=== PATIENT | female | born 1945 | race American Indian/Alaskan Native ===

== ENCOUNTER 2018-05-13 12:19 | Outpatient (CLI) | payer BC ==
[2018-05-13 12:59] LABS: Hematocrit 37.3 % (30.3-42.9); Hemoglobin 12.6 gm/dl (10.1-14.3); Red Blood Count 4.54 M/mm3 (3.65-5.03)
[2018-05-13 13:00] LABS: Basophils # (Auto) 0.1 K/mm3 (0.0-0.1); Basophils % (Auto) 1.2 % (0.0-1.8); Eosinophils % (Auto) 0.7 % (0.0-4.3); Lymphocytes # (Auto) 1.6 K/mm3 (1.2-5.4); Lymphocytes % (Auto) 24.4 % (13.4-35.0); Mean Corpuscular HGB Conc 34 % (30-34); Mean Corpuscular Hemoglobin 28 pg (28-32); Mean Corpuscular Volume 82 fl (79-97); Monocytes # (Auto) 0.4 K/mm3 (0.0-0.8); Monocytes % (Auto) 6.6 % (0.0-7.3); Platelet Count 349 K/mm3 (140-440); Red Cell Distribution Width 16.5 % (13.2-15.2)
[2018-05-13 13:14] LABS: Alanine Aminotransferase 20 units/L (7-56); BUN/Creatinine Ratio 21; Blood Urea Nitrogen 17 mg/dL (7-17); Calcium 9.9 mg/dL (8.4-10.2); Chol/HDL Ratio 5.21 %; HDL Cholesterol 46 mg/dL (40-59); Hemolysis Index 39; LDL Cholesterol,Direct 190 mg/dL (50-130)
[2018-05-15 14:09] LABS: Creatinine,Urine 143.5 mg/dL (0.1-20.0); Microalbumin/Creatinine Ratio 207.6 ug/mg
== END 2018-05-13 12:20 | disposition home or self-care (01) ==
LOC: LAB 12:19
DX: E11.65 Type 2 diabetes mellitus with hyperglycemia (principal); I10 Essential (primary) hypertension; E78.5 Hyperlipidemia, unspecified; I63.9 Cerebral infarction, unspecified; Z90.710 Acquired absence of both cervix and uterus
CPT/HCPCS: 36415; 80053; 80061; 82043; 83036; 85025

== ENCOUNTER 2019-03-26 11:47 | Outpatient (CLI) | payer BC ==
[2019-03-26 13:07] LABS: Hematocrit 35.6 % (30.3-42.9); Hemoglobin 11.8 gm/dl (10.1-14.3); Mean Corpuscular HGB Conc 33 % (30-34); Mean Corpuscular Volume 80 fl (79-97); Platelet Count 306 K/mm3 (140-440); Red Blood Count 4.44 M/mm3 (3.65-5.03); Red Cell Distribution Width 16.3 % (13.2-15.2)
[2019-03-26 13:10] LABS: Bilirubin,Urine NEG (Negative); Blood,Urine NEG (Negative); Color,Urine Yellow (Yellow); Mucus,Urine FEW /HPF; Urobilinogen,Urine < 2.0 mg/dL (<2.0)
[2019-03-26 13:18] LABS: Creatinine,Urine 133.5 mg/dL (0.1-20.0)
[2019-03-26 13:23] LABS: Alanine Aminotransferase 21 units/L (7-56); Albumin 3.9 g/dL (3.9-5); BUN/Creatinine Ratio 15; Blood Urea Nitrogen 12 mg/dL (7-17); Calcium 10.1 mg/dL (8.4-10.2); Hemolysis Index 1; LDL Cholesterol,Direct 170 mg/dL (50-130)
[2019-03-26 13:34] LABS: Chol/HDL Ratio 4.76 %; HDL Cholesterol 46 mg/dL (40-59)
[2019-03-26 13:56] LABS: Microalbumin/Creatinine Ratio 479.4 ug/mg
[2019-03-29 14:04] LABS: Vitamin D, 25-OH, D2 <4 ng/mL
== END 2019-03-26 11:48 | disposition home or self-care (01) ==
LOC: LAB 11:47
PROVIDERS: ATTEND Internal Medicine
DX: Z13.21 Encounter for screening for nutritional disorder (principal); E11.65 Type 2 diabetes mellitus with hyperglycemia; E78.5 Hyperlipidemia, unspecified; I10 Essential (primary) hypertension; Z90.710 Acquired absence of both cervix and uterus
CPT/HCPCS: 36415; 80053; 80061; 81001; 82043; 82306; 82607; 83036; 84443; 85027

== ENCOUNTER 2019-07-10 10:06 | Outpatient (CLI) | payer BC ==
[2019-07-10 11:48] LABS: Chol/HDL Ratio 5.52 %
[2019-07-15 10:06] LABS: Vitamin D, 25-OH, D2 <4 ng/mL
== END 2019-07-10 10:07 | disposition home or self-care (01) ==
LOC: LAB 10:06
PROVIDERS: ATTEND Internal Medicine
DX: E78.5 Hyperlipidemia, unspecified (principal); E55.9 Vitamin D deficiency, unspecified; E11.65 Type 2 diabetes mellitus with hyperglycemia
CPT/HCPCS: 36415; 80061; 82306; 83036

== ENCOUNTER 2019-08-18 11:04 | Outpatient (CLI) | payer BC ==
[2019-08-18 12:10] LABS: BUN/Creatinine Ratio 14; Blood Urea Nitrogen 10 mg/dL (7-17); Calcium 9.3 mg/dL (8.4-10.2); Hemolysis Index 11; LDL Cholesterol,Direct 172 mg/dL (50-130)
[2019-08-18 12:22] LABS: Chol/HDL Ratio 4.84 %; HDL Cholesterol 45 mg/dL (40-59)
--- NOTE | 2019-08-19 10:49 | Mammography Report ---
DIGITAL SCREENING MAMMOGRAM WITH CAD, 08/18/2019 INDICATION: Routine screening mammography. Breast cancer survivor status post left partial mastectomy with radiation therapy. TECHNIQUE: Digital bilateral 2D mammography was obtained in the craniocaudal and mediolateral obliq ue projections. This examination was interpreted with the benefit of Computer-Aided Detection analysi s. COMPARISON: 07/21/2018 FINDINGS: Breast Density: There are scattered areas of fibroglandular density. There is no evidence of dominant mass, suspicious calcifications or suspicious architectural distorti on in either breast. The left breast is smaller than the right with stable upper outer benign postsur gical scar with benign calcifications. Bilateral benign arterial calcifications. IMPRESSION: No mammographic evidence of malignancy. Follow up recommendation: Routine yearly BI-RADS Category 2: Benign. A "normal" or negative report should not discourage follow up or biopsy of a clinically significant f inding. A written summary of these findings will be mailed to the patient. The patient will be entered into a mammography reporting system which will generate a reminder letter for the patient's next appointmen t at the appropriate interval. The [employer] recommends yearly mammograms starting at age 40 and continuing as l angelita as a woman is in good health. Breast MRI is recommended for women with an approximate 20-25% or greater lifetime risk of breast cancer, including women with a strong family history of breast or ova jose cancer or who have been treated for Hodgkin's disease. Signer Name: Joey Alcazar MD Signed: 08/19/2019 10:45 AM Workstation Name: [id number]
== END 2019-08-18 11:05 | disposition home or self-care (01) ==
LOC: MAMMO 11:04
PROVIDERS: ATTEND Internal Medicine Cardiovascular Disease
DX: Z12.31 Encounter for screening mammogram for malignant neoplasm of breast (principal); N64.89 Other specified disorders of breast; E78.49 Other hyperlipidemia
CPT/HCPCS: 36415; 77067; 80048; 80061; 83880

== ENCOUNTER 2019-09-15 08:41 | Outpatient (CLI) | payer BC ==
[2019-09-15] MEDS ORDERED: REGADENOSON 0.4 MG/5 ML INJ IV ONE ×2 (10:28→10:38)
[2019-09-15 12:23] VITALS: BP 183/76
--- NOTE | 2019-09-17 07:37 | Treadmill Report ---
NUCLEAR CARDIAC IMAGING STRESS TEST INDICATION FOR PROCEDURE: Chest pain. Informed consent was obtained. DESCRIPTION OF PROCEDURE: Vasodilator stress was achieved with the intravenous administration of 0.4 mg of Lexiscan per protocol. Nuclear cardiac imaging was performed following the intravenous administration of technetium-99m Myoview per protocol. Gated SPECT imaging demonstrates a post-stress left ventricular ejection fraction of 63% with normal wall motion. Myocardial perfusion imaging demonstrates a large, moderately severe reversible anterior perfusion abnormality. The nuclear cardiac imaging study is abnormal. The study demonstrates normal post-stress left ventricular systolic dysfunction with evidence of a significant degree of ischemia in the distribution of the left anterior descending coronary artery. No evidence of prior myocardial necrosis. JOB# [id number] SHEREEN/KRISTIAN
== END 2019-09-15 08:42 | disposition home or self-care (01) ==
LOC: ECHO 08:41
PROVIDERS: ATTEND Internal Medicine Cardiovascular Disease
DX: I10 Essential (primary) hypertension (principal); R94.31 Abnormal electrocardiogram [ECG] [EKG]; Z86.79 Personal history of other diseases of the circulatory system; R06.09 Other forms of dyspnea
CPT/HCPCS: 78452; 93017; 93306; A9502; J2785

== ENCOUNTER 2019-09-24 05:45 | Observation (INO) | payer BC, MEDICARE ==
[2019-09-24] MEDS ORDERED: ASPIRIN EC 325 MG TAB PO ONE ×2 (06:48→06:54)
[2019-09-24 07:39] LABS: INR 1.03 (0.87-1.13)
[2019-09-24 07:41] LABS: BUN/Creatinine Ratio 15; Blood Urea Nitrogen 9 mg/dL (7-17); Calcium 9.3 mg/dL (8.4-10.2); Hemolysis Index 2
[2019-09-24 07:49] LABS: Basophils % (Auto) 0.6 % (0.0-1.8); Eosinophils # (Auto) 0.1 K/mm3 (0.0-0.4); Eosinophils % (Auto) 1.4 % (0.0-4.3); Hematocrit 33.4 % (30.3-42.9); Hemoglobin 11.1 gm/dl (10.1-14.3); Lymphocytes # (Auto) 1.4 K/mm3 (1.2-5.4); Lymphocytes % (Auto) 21.1 % (13.4-35.0); Mean Corpuscular HGB Conc 33 % (30-34); Mean Corpuscular Volume 81 fl (79-97); Monocytes # (Auto) 0.6 K/mm3 (0.0-0.8); Monocytes % (Auto) 8.7 % (0.0-7.3); Platelet Count 309 K/mm3 (140-440); Red Blood Count 4.13 M/mm3 (3.65-5.03); Red Cell Distribution Width 16.2 % (13.2-15.2)
[2019-09-24] MEDS: SODIUM CHLORIDE 0.9% 500 ML 500 ML IV SCH ×2 (07:51→08:45)
[2019-09-24] MEDS ORDERED: HEPARIN/NS 5000 UNIT/500ML 1,000 ML IR ONE (07:58)
[2019-09-24] MEDS: fentaNYL 100 MCG/2 ML INJ ONE ×2 (08:42→08:48)
[2019-09-24] MEDS: LIDOCAINE (2%) 20 MG/1 ML VIAL 20 ML MDV INFILTRATI ONE ×2 (08:44→08:54)
[2019-09-24] MEDS: MIDAZOLAM 2 MG/2 ML INJ ONE ×2 (08:44→08:48)
[2019-09-24] MEDS: HEPARIN 10,000 UNITS/10 ML VIAL ONE ×4 (08:44→09:02)
[2019-09-24] MEDS: VERAPAMIL 5 MG/2 ML INJ ONE ×3 (08:45→08:56)
[2019-09-24] MEDS: NITROGLYCERIN SYRINGE 3 ML ONE ×3 (08:45→08:56)
[2019-09-24] MEDS ORDERED: HEPARIN 10,000 UNITS/10 ML VIAL ONE (09:31)
[2019-09-24] MEDS: PRASUGREL 10 MG TAB PO ONE (09:39)
[2019-09-24] MEDS: ALUM-MAG HYDROXIDE-SIMETHICONE 200-200-20MG/5ML ORAL LIQD 30 ML ONE (09:39)
--- NOTE | 2019-09-24 10:09 | Cardiac Catherization Report ---
CARDIAC CATHETERIZATION REFERRING PHYSICIAN: Dr. Velazquez. INDICATION FOR PROCEDURE: The patient is a very pleasant 74-year-old -[place] female with multiple risk factors including hypertension, obesity, asthma, diabetes, who has exertional chest pain, abnormal stress test, referred for left heart catheterization. Risks, benefits, alternatives discussed at length prior to obtaining informed consent. PROCEDURE IN DETAIL: The patient was brought to the catheterization lab in a postoperative state, prepped and draped in sterile fashion. Dawood's test in right hand was normal. A 2 mL of 2% lidocaine used to anesthetize the right wrist. A standard 6-St Helenian hydrophilic sheath used to cannulate the right radial artery via modified Seldinger technique. All exchanges performed to exchange a J wire. JL3.5 catheter was used to engage the left main. No dampening or ventricularization. Cineangiography performed in all projections. JR4 catheter used to cross the aortic valve under fluoroscopic guidance. Left ventriculography performed in 30 MARIN and 30 CHILEAN projections via hand injections, catheter flushed. Manual pullback performed with continuous pressure monitoring. Catheter used to engage the right coronary. No dampening or ventricularization. Cineangiography performed in all projections. DATA: Aortic pressure is 170/80, LV pressure is 170, LVEDP of 25 mmHg. Left ventriculography reveals normal systolic performance with estimated ejection fraction of 55-60%. No evidence of aortic stenosis. CORONARY ANATOMY: This is a codominant system. Right coronary without significant disease, bifurcates into posterior descending and posterolateral branch. No significant disease noted. Left main is without significant disease, bifurcates left anterior descending and left circumflex. Left circumflex, moderate sized vessel, courses AV groove, gives off a small left PDA, OM trunk. In the mid segment, there is a 90% ulcerated culprit lesion. The LAD is a moderate sized vessel, courses anterior intergroove, wraps around the apex. There is a long 50-60% stenosis throughout the mid and distal LAD certainly would not treat this with PCI, medical management, very long lesion with SHANELLE 3 flow. I believe as aforementioned the circ is the culprit lesion. The patient with anterolateral ischemia on stress test. At this point, we turned our attention to PCI. Heparin given. Abnormal ACT confirmed. A JL3.5 guide used to engage left main. No dampening or ventricularization. A Prowater wire was used to cross the lesion. Direct stent with a 3.0 x 12 Rogelio drug-eluting stent at 12 BRADY for 30 seconds. Excellent angiographic result. Intravascular ultrasound was performed reveals well apposed, well expanded stent. No complications, no dissection. Final angiogram reveals excellent result. No immediate complications. I directly supervised the administration of moderate sedation from 8:47 a.m. to 9:25 a.m. CONCLUSIONS: 1. Severe single vessel coronary artery disease, a 90% ulcerated culprit mid left circumflex, status post IVUS. A. Successful IVUS guided PCI with placement of drug-eluting stent (Rogelio 3.0 x 12) with excellent final angiographic and ultrasonographic results. B. LAD with moderate diffuse disease throughout with maximal narrowing of approximately 50%-60%. Given length of this lesion, would treat this medically, SHANELLE 3 flow throughout. No significant disease in the right coronary or left main. 2. Preserved left ventricular systolic performance, estimated ejection fraction of 55-60%. 3. No evidence of aortic stenosis. 4. Normal LVEDP. 5. Hypertension. At this point, plan aggressive risk factor modification, dual antiplatelet therapy with Plavix and aspirin, statin therapy. Continue statin therapy, standard radial care. Results of procedure explained in length to the patient and family. All questions and concerns were addressed. [facility]# [id number] JOCELYNE/KRISTIAN
[2019-09-24] MEDS ORDERED: DEXTROSE 50% IN WATER (25GM) 50 ML SYRINGE IV PRN (14:56)
[2019-09-24] MEDS ORDERED: hydrALAZINE 25 MG TAB PO ONE (15:53)
[2019-09-24] MEDS ORDERED: amLODIPine 5 MG TAB PO ONE (16:52)
[2019-09-24] MEDS: INSULIN LISPRO 100 UNIT/ML SUB-Q SCH ×2 (17:10→21:59)
[2019-09-24] MEDS ORDERED: NITROGLYCERIN 0.4 MG TAB SUBL SL PRN (18:24)
[2019-09-24] MEDS ORDERED: METOPROLOL TARTRATE 50 MG TAB PO ONE (18:25)
[2019-09-24] MEDS: hydrALAZINE 25 MG TAB PO SCH (21:59)
--- NOTE | 2019-09-25 06:08 | XRay Report ---
CHEST 1 VIEW 5:34 AM INDICATION / CLINICAL INFORMATION: Post PCI. COMPARISON: None available. FINDINGS: SUPPORT DEVICES: None. HEART / MEDIASTINUM: The heart size and pulmonary vasculature are normal. LUNGS / PLEURA: No significant pulmonary or pleural abnormality. No pneumothorax. ADDITIONAL FINDINGS: The right hemidiaphragm is slightly elevated. IMPRESSION: No acute findings. Signer Name: Kyle Barrow MD Signed: 09/25/2019 6:03 AM Workstation Name: [id number]
[2019-09-25 06:37] LABS: Basophils % (Auto) 0.4 % (0.0-1.8); Eosinophils # (Auto) 0.1 K/mm3 (0.0-0.4); Eosinophils % (Auto) 1.3 % (0.0-4.3); Hematocrit 32.7 % (30.3-42.9); Hemoglobin 10.6 gm/dl (10.1-14.3); Lymphocytes # (Auto) 1.5 K/mm3 (1.2-5.4); Lymphocytes % (Auto) 21.8 % (13.4-35.0); Mean Corpuscular HGB Conc 32 % (30-34); Mean Corpuscular Volume 81 fl (79-97); Monocytes # (Auto) 0.6 K/mm3 (0.0-0.8); Monocytes % (Auto) 8.3 % (0.0-7.3); Platelet Count 303 K/mm3 (140-440); Red Blood Count 4.03 M/mm3 (3.65-5.03); Red Cell Distribution Width 16.2 % (13.2-15.2)
[2019-09-25 07:07] LABS: Creatine Kinase MB 7.5 ng/mL (0.0-4.0)
[2019-09-25 07:11] LABS: BUN/Creatinine Ratio 17; Blood Urea Nitrogen 10 mg/dL (7-17); Calcium 9.2 mg/dL (8.4-10.2); Hemolysis Index 1
[2019-09-25 07:38] LABS: HDL Cholesterol 37 mg/dL (40-59); LDL Cholesterol,Direct 97 mg/dL (50-130)
[2019-09-25] MEDS: INSULIN LISPRO 100 UNIT/ML SUB-Q SCH ×2 (08:00→12:00)
[2019-09-25] MEDS: hydrALAZINE 25 MG TAB PO SCH (09:15)
[2019-09-25 09:16] VITALS: BP 136/55
[2019-09-25] MEDS ORDERED: amLODIPine 5 MG TAB PO SCH (10:00)
[2019-09-25] MEDS ORDERED: FUROSEMIDE 40 MG TAB PO SCH (10:00)
[2019-09-25] MEDS ORDERED: CLOPIDOGREL 75 MG TAB PO SCH (10:00)
[2019-09-25] MEDS ORDERED: ASPIRIN 81 MG TAB CHEW PO SCH (10:00)
--- NOTE | 2019-09-25 10:25 | Short Stay Summary ---
Short Stay Documentation Date of service: 09/25/19 - History H&P: obtained from office - Allergies and Medications Current Medications: Allergies No Known Allergies Allergy (Verified 07/16/16 09:15) Home Medications Medication Instructions Recorded Confirmed Last Taken Type Aspirin [Aspirin BABY CHEW TAB] 81 mg PO QDAY 07/16/16 09/24/19 09/23/19 History AtorvaSTATin [Lipitor] 80 mg PO QHS 07/16/16 09/24/19 09/23/19 History Cholecalciferol (Vitamin D3) 1,000 unit PO QDAY 09/24/19 09/24/19 09/23/19 History [Vitamin D3 2,000 UNIT CAP] Furosemide [Lasix TAB] 40 mg PO QDAY 09/24/19 09/24/19 09/23/19 History Insulin Glargine,Hum.rec.anlog 30 mg PO BID 09/24/19 09/24/19 09/23/19 History [Toujeo Solostar] Irbesartan [Avapro] 300 mg PO DAILY 09/24/19 09/24/19 09/23/19 History Lispro Insulin [HumaLOG] 20 unit SQ BIDAC 09/24/19 09/24/19 09/23/19 History Potassium Chloride [K-Dur] 20 meq PO BID 09/24/19 09/24/19 09/23/19 History amLODIPine 5 mg PO DAILY 09/24/19 09/24/19 09/23/19 History hydrALAZINE [Apresoline] 50 mg PO BID 09/24/19 09/24/19 09/23/19 History Active Medications Amlodipine Besylate (Amlodipine) 5 mg PO DAILY [facility] Last Admin: 09/25/19 09:16 Dose: 5 mg Documented by: Aspirin (Baby Aspirin) 81 mg PO QDAY [facility] Last Admin: 09/25/19 09:16 Dose: 81 mg Documented by: Atorvastatin Calcium (Lipitor) 80 mg PO QHS [facility] Last Admin: 09/24/19 21:59 Dose: 80 mg Documented by: Clopidogrel Bisulfate (Plavix) 75 mg PO QDAY [facility] Last Admin: 09/25/19 09:16 Dose: 75 mg Documented by: Dextrose (D50w (25gm) Syringe) 50 ml IV Q30MIN PRN; Protocol PRN Reason: Hypoglycemia Furosemide (Lasix) 40 mg PO QDAY [facility] Last Admin: 09/25/19 09:16 Dose: 40 mg Documented by: Hydralazine HCl (Apresoline) 50 mg PO BID [facility] Last Admin: 09/25/19 09:15 Dose: 50 mg Documented by: Insulin Human Lispro (Humalog) 0 unit SUB-Q ACHS [facility]; Protocol Last Admin: 09/25/19 08:00 Dose: 3 unit Documented by: Nitroglycerin (Nitrostat) 0.4 mg SL .Q5MIN PRN PRN Reason: Chest Pain Last Admin: 09/24/19 18:44 Dose: 0.4 mg Documented by: - Physical exam General appearance: no acute distress Integumentary: no rash, no growths, no abnormal pigmentation, other (RRA LHC site c/d/i, no bleeding or hematoma) HEENT: Atraumatic, EOMI Lungs: Clear to auscultation Heart: Regular rate, Normal S1, Normal S2 Gastrointestinal: normal, normoactive bowel sounds Extremities: no ischemia, pulses intact, pulses symmetrical Neurological: Normal gait, Normal speech, Strength at 5/5 X4 ext - Brief post op/procedure progress note Date of procedure: 09/24/19 Pre-op diagnosis: abnormal stress test; cp Post-op diagnosis: other (CAD) Procedure: LHC with PCI - see dictated cath report Anesthesia: local Estimated blood loss: none Condition: stable - Hospital course Hospital course: Pt presented for scheduled elective LHC and subsequently underwent LHC with PCI - see dictated cath report. She was admitted for observation overnight. She has remained clinically and hemodynamically stable throughout admission and is medically stable for discharge home today. - Disposition Condition at discharge: Good Disposition: DC-01 TO HOME OR SELFCARE - Discharge Diagnoses (1) CAD (coronary artery disease) Status: Chronic (2) Stented coronary artery Status: Chronic (3) HTN (hypertension) Status: Chronic (4) Diabetes Status: Chronic (5) Asthma Status: Chronic Short Stay Discharge Plan Activity: advance as tolerated Diet: low fat, low cholesterol, low salt, diabetic Wound: open to air, keep clean and dry, per your surgeon's advice Follow up with: JUAN KEITA MD [Primary Care Provider] - 7 Days CHASE HERR MD [Staff Physician] - 7 Days ([place] office, 09/29/2019 @ 10:00AM) Prescriptions: Clopidogrel [Plavix] 75 mg PO QDAY #30 tablet
[2019-09-25] MEDS ORDERED: CLOPIDOGREL 300 MG TAB PO ONE (11:10)
== END 2019-09-25 12:50 | disposition home or self-care (01) ==
LOC: CATHLABREC 05:45 → 4A 11:01
PROVIDERS: ADMIT Internal Medicine; ATTEND Internal Medicine
DX: I25.10 Atherosclerotic heart disease of native coronary artery without angina pectoris (principal); I10 Essential (primary) hypertension; E66.9 Obesity, unspecified; E11.9 Type 2 diabetes mellitus without complications; J45.909 Unspecified asthma, uncomplicated; Z95.5 Presence of coronary angioplasty implant and graft; Z79.82 Long term (current) use of aspirin; Z79.4 Long term (current) use of insulin; Z68.39 Body mass index [BMI] 39.0-39.9, adult
CPT/HCPCS: 36415; 71045; 80048; 80061; 82550; 82553; 82962; 84484; 85025; 85347; 85610; 85730; 92978; 93005; 93010; 93458; 96372; A9270; C1753; C1769; C1874; C1887; C1894; C9600; G0378; J1644; J2250; J3010; J7040; 92928; J1815; Q9967

== ENCOUNTER 2019-11-05 11:31 | Outpatient (CLI) | payer BC, MEDICARE ==
[2019-11-05 13:40] LABS: BUN/Creatinine Ratio 17; Blood Urea Nitrogen 12 mg/dL (7-17); Calcium 9.8 mg/dL (8.4-10.2); HDL Cholesterol 40 mg/dL (40-59); Hemolysis Index 36; LDL Cholesterol,Direct 111 mg/dL (50-130)
== END 2019-11-05 11:32 | disposition home or self-care (01) ==
LOC: LAB 11:31
PROVIDERS: ATTEND Internal Medicine
DX: I25.10 Atherosclerotic heart disease of native coronary artery without angina pectoris (principal); E11.9 Type 2 diabetes mellitus without complications
CPT/HCPCS: 36415; 80048; 80061; 83036

== ENCOUNTER 2019-12-02 12:42 | Inpatient (IN) | payer BC, MEDICARE ==
--- NOTE | 2019-12-02 13:00 | Emergency Department Report ---
Blank Doc - Documentation Documentation: 74-year-old female that presents with cough, SOB, fever, and tachycardia. This initial assessment/diagnostic orders/clinical plan/treatment(s) is/are subject to change based on patient's health status, clinical progression and re- assessment by fellow clinical providers in the ED. Further treatment and workup at subsequent clinical providers discretion. Patient/guardians urged not to elope from the ED as their condition may be serious if not clinically assessed and managed. Initial orders include: 1- Patient sent to [facility] for further evaluation and treatment 2- fllu swab 3- cxr
[2019-12-02 13:29] LABS: Basophils % (Auto) 0.9 % (0.0-1.8); Eosinophils % (Auto) 0.1 % (0.0-4.3); Hematocrit 37.2 % (30.3-42.9); Hemoglobin 11.9 gm/dl (10.1-14.3); Lymphocytes % (Auto) 23.6 % (13.4-35.0); Mean Corpuscular HGB Conc 32 % (30-34); Mean Corpuscular Volume 79 fl (79-97); Monocytes # (Auto) 0.6 K/mm3 (0.0-0.8); Platelet Count 294 K/mm3 (140-440); Red Cell Distribution Width 15.6 % (13.2-15.2)
[2019-12-02 13:40] LABS: INR 1.04 (0.87-1.13)
[2019-12-02 13:41] LABS: Partial Thromboplastin Time 26.8 Sec. (24.2-36.6)
--- NOTE | 2019-12-02 13:53 | XRay Report ---
CHEST 2 VIEWS INDICATION / CLINICAL INFORMATION: cough. COMPARISON: One view of the chest from 09/25/2019. FINDINGS: SUPPORT DEVICES: None. HEART / MEDIASTINUM: No significant abnormality. LUNGS / PLEURA: Bilateral airspace opacities are most notable along the lung bases. No significant pl eural effusion. No pneumothorax. ADDITIONAL FINDINGS: No significant additional findings. IMPRESSION: Bilateral pulmonary opacities are concerning for pneumonia. Signer Name: Jordy Sher MD Signed: 12/02/2019 1:49 PM Workstation Name: [id number]
[2019-12-02 13:56] LABS: Alanine Aminotransferase 17 units/L (7-56); Albumin 3.6 g/dL (3.9-5); BUN/Creatinine Ratio 11; Blood Urea Nitrogen 8 mg/dL (7-17); Calcium 9.1 mg/dL (8.4-10.2); Hemolysis Index 3
[2019-12-02] MEDS ORDERED: cefTRIAXone/NS 1 GM/50 ML 1 GM/50 ML BAG IV ONE (15:15)
[2019-12-02] MEDS ORDERED: POTASSIUM CHLORIDE ER 20 MEQ TAB PO ONE (15:16)
--- NOTE | 2019-12-02 15:23 | Emergency Department Report ---
ED Fever HPI - General Chief Complaint: Dyspnea/Respdistress Stated Complaint: FEVER Time Seen by Provider: 12/02/19 12:59 Source: patient Exam Limitations: no limitations - History of Present Illness Initial Comments: 74-year-old female with a past medical history of CAD with cardiac stent, diabetes, hypertension, and asthma presents to the hospital complains of cough, shortness of breath with wheezing, and fever documented today. Patient has had a dry cough x1 week thought to be due to asthma and allergies. Intermittent wheezing and shortness of breath. Patient is an employee here at [employer] and works in registration at [employer]. Patient received temperature screening upon entry into the hospital and was found to be febrile with a temp of 101. Patient was told to follow-up with primary care doctor and go home. Patient's family doctor and had a nap. Her primary care doctor advised that she come back to the ER since they do not evaluate and perform Covid testing. Patient also complains of nausea without vomiting or diarrhea. ED Review of Systems ROS: Stated complaint: FEVER Other details as noted in HPI Comment: All other systems reviewed and negative ED Past Medical Hx - Past Medical History Hx Hypertension: Yes Hx Heart Attack/AMI: No Hx Diabetes: Yes Hx GERD: Yes Hx Asthma: Yes Hx HIV: No - Surgical History Additional Surgical History: bilateral knee replacement, hysterectomy - Social History Smoking Status: Never Smoker Substance Use Type: None - Medications Home Medications: Home Medications Medication Instructions Recorded Confirmed Last Taken Type Aspirin [Aspirin BABY CHEW TAB] 81 mg PO QDAY 07/16/16 09/24/19 09/23/19 History AtorvaSTATin [Lipitor] 80 mg PO QHS 07/16/16 09/24/19 09/23/19 History Cholecalciferol (Vitamin D3) 1,000 unit PO QDAY 09/24/19 09/24/19 09/23/19 His tory [Vitamin D3 2,000 UNIT CAP] Furosemide [Lasix TAB] 40 mg PO QDAY 09/24/19 09/24/19 09/23/19 History Insulin Glargine,Hum.rec.anlog 30 mg PO BID 09/24/19 09/24/19 09/23/19 History [Touanahi Solanai] Irbesartan [Avapro] 300 mg PO DAILY 09/24/19 09/24/19 09/23/19 History Lispro Insulin [HumaLOG] 20 unit SQ BIDAC 09/24/19 09/24/19 09/23/19 History Potassium Chloride [K-Dur] 20 meq PO BID 09/24/19 09/24/19 09/23/19 History amLODIPine 5 mg PO DAILY 09/24/19 09/24/19 09/23/19 History hydrALAZINE [Apresoline TAB] 50 mg PO BID 09/24/19 09/24/19 09/23/19 History Aspirin [Aspirin BABY CHEW TAB] 81 mg PO QDAY tab.chew 09/25/19 Unknown Rx Clopidogrel [Plavix] 75 mg PO QDAY #30 tablet 09/25/19 Unknown Rx ED Physical Exam - General Limitations: No Limitations - Other Other exam information: General: No acute distress Head: Atraumatic Eyes: normal appearance ENT: Moist mucous membranes Neck: Normal appearance, no midline tenderness Chest: Clear to auscultation bilaterally CV: Regular rate and rhythm Abdomen: Soft, normal bowel sounds, nontender, nondistended, no rebound or guarding Back: Normal inspection Extremity: Normal inspection, full range of motion Neuro: Alert O x 3, no facial asymmetry, speech clear, no gross motor sensory deficit Psych: Appropriate behavior Skin: No rash ED Course Vital Signs 12/02/19 12/02/19 12:54 13:01 Temperature 99.5 F 99.5 F Pulse Rate 95 H 95 H Respiratory 24 24 Rate Blood Pressure 111/54 Blood Pressure 111/54 [Left] O2 Sat by Pulse 95 95 Oximetry ED Medical Decision Making - Lab Data Result diagrams: 12/02/19 13:18 12/02/19 13:18 Lab Results 12/02/19 12/02/19 12/02/19 Range/Units 13:18 13:18 13:18 WBC 4.3 L (4.5-11.0) K/mm3 RBC 4.70 (3.65-5.03) M/mm3 Hgb 11.9 (10.1-14.3) gm/dl Hct 37.2 (30.3-42.9) % MCV 79 (79-97) fl MCH 25 L (28-32) pg MCHC 32 (30-34) % RDW 15.6 H (13.2-15.2) % Plt Count 294 (140-440) K/mm3 Lymph % (Auto) 23.6 (13.4-35.0) % Glades % (Auto) 13.0 H (0.0-7.3) % Eos % (Auto) 0.1 (0.0-4.3) % Baso % (Auto) 0.9 (0.0-1.8) % Lymph # 1.0 L (1.2-5.4) K/mm3 Glades # 0.6 (0.0-0.8) K/mm3 Eos # 0.0 (0.0-0.4) K/mm3 Baso # 0.0 (0.0-0.1) K/mm3 Seg Neutrophils % 62.4 (40.0-70.0) % Seg Neutrophils # 2.7 (1.8-7.7) K/mm3 PT 13.7 (12.2-14.9) Sec. INR 1.04 (0.87-1.13) APTT 26.8 (24.2-36.6) Sec. Sodium 136 L (137-145) mmol/L Potassium 3.3 L (3.6-5.0) mmol/L Chloride 97.8 L (98-107) mmol/L Carbon Dioxide 24 (22-30) mmol/L Anion Gap 18 mmol/L BUN 8 (7-17) mg/dL Creatinine 0.7 (0.7-1.2) mg/dL Estimated GFR > 60 ml/min BUN/Creatinine Ratio 11 % Glucose 229 H (65-100) mg/dL Calcium 9.1 (8.4-10.2) mg/dL Total Bilirubin 0.30 (0.1-1.2) mg/dL AST 20 (5-40) units/L ALT 17 (7-56) units/L Alkaline Phosphatase 126 (35-129) units/L Troponin T < 0.010 (0.00-0.029) ng/mL Total Protein 7.5 (6.3-8.2) g/dL Albumin 3.6 L (3.9-5) g/dL Albumin/Globulin Ratio 0.9 % - Radiology Data Radiology results: report reviewed CHEST 2 VIEWS INDICATION / CLINICAL INFORMATION: cough. COMPARISON: One view of the chest from 09/25/2019. FINDINGS: SUPPORT DEVICES: None. HEART / MEDIASTINUM: No significant abnormality. LUNGS / PLEURA: Bilateral airspace opacities are most notable along the lung bases. No significant pleural effusion. No pneumothorax. ADDITIONAL FINDINGS: No significant additional findings. IMPRESSION: Bilateral pulmonary opacities are concerning for pneumonia. - Medical Decision Making Patient placed in respiratory isolation. Blood cultures ordered for bilateral pneumonia and patient be treated with Rocephin and azithromycin. Covid testing requested. Flu swab collection pending at disposition. Oral potassium ordered for mild hypokalemia. case discussed with hospitalist for admission. - Differential Diagnosis copd, pneumonia, bronchitis Critical Care Time: No Critical care attestation.: If time is entered above; I have spent that time in minutes in the direct care of this critically ill patient, excluding procedure time. ED Disposition Clinical Impression: Bilateral pneumonia, Diabetes, Stented coronary artery, HTN (hypertension), Asthma Disposition: OP ADMIT IP TO THIS HOSP Is pt being admited?: Yes Condition: Stable Time of Disposition: 15:25 (ronald boston)
[2019-12-02] MEDS ORDERED: AZITHROMYCIN 500 MG in SODIUM CHLORIDE 0.9% 250ML 250 ML IV ONE (16:00)
--- NOTE | 2019-12-02 22:53 | History and Physical Report ---
History of Present Illness Date of examination: 12/02/19 Date of admission: 12/02/19 15:26 Chief complaint: Fever this morning. History of present illness: 74-year-old female with history of CHF, insulin-dependent diabetes, hypertension, coronary artery disease and hyperlipidemia comes in for cough shortness of breath wheezing and for fever for 1 day. Patient has been having cough for 1week which she attributes to her asthma and allergies. Intermittent wheezing and shortness of breath present. 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 Patient received temperature screening and was found to have a temperature of 101. Patient's primary care doctor asked her to come to the emergency room to be evaluated and performed coronavirus testing. Patient also complains of nausea but no vomiting or diarrhea. Low-grade fever but the patient does not realize that she had fever. Exposure in the hospital present. Patient is not exposed to a known coronavirus patient. Past Medical History Hypertension: Yes Diabetes: Yes GERD: Yes Asthma: Yes Surgical History Additional Surgical History: bilateral knee replacement, hysterectomy Social History Smoking Status: Never Smoker Substance Use Type: None Family history Htn Medications Home Medications: Home Medications Medication Instructions Recorded Confirmed Last Taken Type Aspirin [Aspirin BABY CHEW TAB] 81 mg PO QDAY 07/16/16 09/24/19 09/23/19 History AtorvaSTATin [Lipitor] 80 mg PO QHS 07/16/16 09/24/19 09/23/19 History Cholecalciferol (Vitamin D3) 1,000 unit PO QDAY 09/24/19 09/24/19 09/23/19 History [Vitamin D3 2,000 UNIT CAP] Furosemide [Lasix TAB] 40 mg PO QDAY 09/24/19 09/24/19 09/23/19 History Insulin Glargine,Hum.rec.anlog 30 mg PO BID 09/24/19 09/24/19 09/23/19 History [Toujeo Solostar] Irbesartan [Avapro] 300 mg PO DAILY 09/24/19 09/24/19 09/23/19 History Lispro Insulin [HumaLOG] 20 unit SQ BIDAC 09/24/19 09/24/19 09/23/19 History Potassium Chloride [K-Dur] 20 meq PO BID 09/24/19 09/24/19 09/23/19 History amLODIPine 5 mg PO DAILY 09/24/19 09/24/19 09/23/19 History hydrALAZINE [Apresoline TAB] 50 mg PO BID 09/24/19 09/24/19 09/23/19 History Aspirin [Aspirin BABY CHEW TAB] 81 mg PO QDAY tab.chew 09/25/19 Unknown Rx Clopidogrel [Plavix] 75 mg PO QDAY #30 tablet 09/25/19 Unknown Rx Review of Systems Constitutional: fever present, no chills, no weight loss Ears, eyes, nose, mouth and throat: no nasal congestion, no nasal discharge, no sinus pressure, no vision change, no red eye. Neck: No neck pain or rigidity. Cardiovascular: No chest pain, no orthopnea, no palpitations, no leg swelling Respiratory: cough present, congestion, Gastrointestinal: no abdominal pain, no nausea, no vomiting Genitourinary : no dysuria, no hematuria Musculoskeletal: no joint swelling or muscle ache Integumentary: no rash, no pruritis Neurological: no parathesias, no numbness, no tingling Endocrine: no cold or heat intolerance, no polyuria or polydipsia Hematologic/Lymphatic: no easy bruising, no easy bleeding, no gland swelling Allergic/Immunologic: no urticaria, no angioedema. Medications and Allergies Allergies Allergy/AdvReac Type Severity Reaction Status Date / Time No Known Allergies Allergy Verified 07/16/16 09:15 Home Medications Medication Instructions Recorded Confirmed Last Taken Type Aspirin [Aspirin BABY CHEW TAB] 81 mg PO QDAY 07/16/16 12/02/19 09/23/19 History AtorvaSTATin [Lipitor] 80 mg PO QHS 07/16/16 12/02/19 09/23/19 History Insulin Glargine,Hum.rec.anlog 30 mg PO BID 09/24/19 12/02/19 09/23/19 History [Toujeo Solostar] Irbesartan [Avapro] 300 mg PO DAILY 09/24/19 12/02/19 09/23/19 History Lispro Insulin [HumaLOG] 20 unit SQ BIDAC 09/24/19 12/02/19 09/23/19 History amLODIPine 5 mg PO DAILY 09/24/19 12/02/19 09/23/19 History Clopidogrel [Plavix] 75 mg PO QDAY #30 tablet 09/25/19 12/02/19 Unknown Rx Exam - Constitutional Vitals: Temp Pulse Resp BP Pulse Ox 98.3 F 82 15 143/78 94 12/02/19 19:45 12/02/19 20:30 12/02/19 20:30 12/02/19 20:30 12/02/19 20:30 General appearance: Present: no acute distress, well-nourished - EENT Eyes: Present: PERRL ENT: hearing intact, clear oral mucosa - Neck Neck: Present: supple, normal ROM - Respiratory Respiratory effort: normal Respiratory: bilateral: CTA, rales (Scattered) - Cardiovascular Heart rate: 87 Rhythm: regular Heart Sounds: Present: S1 & S2. Absent: rub, click - Extremities Extremities: no ischemia, pulses intact, pulses symmetrical, No edema Peripheral Pulses: within normal limits - Abdominal General gastrointestinal: Present: soft, non-tender, non-distended, normal bowel sounds Female genitourinary: Present: normal - Integumentary Integumentary: Present: clear, warm, dry - Musculoskeletal Musculoskeletal: gait normal, strength equal bilaterally - Psychiatric Psychiatric: appropriate mood/affect, intact judgment & insight - Neurologic Neurologic: CNII-XII intact, moves all extremities - Allied Health Allied health notes reviewed: nursing, case management SHANELLE score - Shanelle Score Age > 65: (1) Yes Aspirin use within the Past 7 Days: (0) No 3 or more CAD Risk Factors: (1) Yes 2 or more Angina events in past 24 hrs: (0) No Known CAD with more than 50% Stenosis: (0) No Elevated Cardiac Markers: (0) No ST Deviation Greater than 0.5mm: (0) No SHANELLE Score: 2 Results - Labs CBC & Chem 7: 12/02/19 13:18 12/02/19 13:18 Labs: Laboratory Last Values WBC 4.3 K/mm3 (4.5-11.0) L 12/02/19 13:18 RBC 4.70 M/mm3 (3.65-5.03) 12/02/19 13:18 Hgb 11.9 gm/dl (10.1-14.3) 12/02/19 13:18 Hct 37.2 % (30.3-42.9) 12/02/19 13:18 MCV 79 fl (79-97) 12/02/19 13:18 MCH 25 pg (28-32) L 12/02/19 13:18 MCHC 32 % (30-34) 12/02/19 13:18 RDW 15.6 % (13.2-15.2) H 12/02/19 13:18 Plt Count 294 K/mm3 (140-440) 12/02/19 13:18 Lymph % (Auto) 23.6 % (13.4-35.0) 12/02/19 13:18 Ida % (Auto) 13.0 % (0.0-7.3) H 12/02/19 13:18 Eos % (Auto) 0.1 % (0.0-4.3) 12/02/19 13:18 Baso % (Auto) 0.9 % (0.0-1.8) 12/02/19 13:18 Lymph # 1.0 K/mm3 (1.2-5.4) L 12/02/19 13:18 Ida # 0.6 K/mm3 (0.0-0.8) 12/02/19 13:18 Eos # 0.0 K/mm3 (0.0-0.4) 12/02/19 13:18 Baso # 0.0 K/mm3 (0.0-0.1) 12/02/19 13:18 Seg Neutrophils % 62.4 % (40.0-70.0) 12/02/19 13:18 Seg Neutrophils # 2.7 K/mm3 (1.8-7.7) 12/02/19 13:18 PT 13.7 Sec. (12.2-14.9) 12/02/19 13:18 INR 1.04 (0.87-1.13) 12/02/19 13:18 APTT 26.8 Sec. (24.2-36.6) 12/02/19 13:18 Sodium 136 mmol/L (137-145) L 12/02/19 13:18 Potassium 3.3 mmol/L (3.6-5.0) L 12/02/19 13:18 Chloride 97.8 mmol/L (98-107) L 12/02/19 13:18 Carbon Dioxide 24 mmol/L (22-30) 12/02/19 13:18 Anion Gap 18 mmol/L 12/02/19 13:18 BUN 8 mg/dL (7-17) 12/02/19 13:18 Creatinine 0.7 mg/dL (0.7-1.2) 12/02/19 13:18 Estimated GFR > 60 ml/min 12/02/19 13:18 BUN/Creatinine Ratio 11 % 12/02/19 13:18 Glucose 229 mg/dL (65-100) H 12/02/19 13:18 Calcium 9.1 mg/dL (8.4-10.2) 12/02/19 13:18 Total Bilirubin 0.30 mg/dL (0.1-1.2) 12/02/19 13:18 AST 20 units/L (5-40) 12/02/19 13:18 ALT 17 units/L (7-56) 12/02/19 13:18 Alkaline Phosphatase 126 units/L (35-129) 12/02/19 13:18 Troponin T < 0.010 ng/mL (0.00-0.029) 12/02/19 13:18 Total Protein 7.5 g/dL (6.3-8.2) 12/02/19 13:18 Albumin 3.6 g/dL (3.9-5) L 12/02/19 13:18 Albumin/Globulin Ratio 0.9 % 12/02/19 13:18 Influenza A (Rapid) Negative (Negative) 12/02/19 15:30 Influenza B (Rapid) Negative (Negative) 12/02/19 15:30 - Imaging and Cardiology EKG: report reviewed (Normal sinus rhythm heart rate of 87/min nonspecific T wave abnormalities in lateral leads) Chest x-ray: report reviewed Imaging and Cardiology: Chest x-ray IMPRESSION: Bilateral pulmonary opacities are concerning for pneumonia. Signer Name: Jordy Sher MD Tran/IV: IV Catheter Type [Right Hand] INT / Saline Lock Assessment and Plan Advance Directives: Yes (Full code) VTE prophylaxis?: Chemical Plan of care discussed with patient/family: Yes - Patient Problems (1) Bilateral pneumonia Current Visit: Yes Status: Acute Plan to address problem: Patient started on Rocephin and Zithromax Coronavirus forms sent Patient kept in isolation No ID consult requested at this time Will ask for ID consult if necessary (2) Suspected 2019 novel coronavirus infection Current Visit: Yes Status: Acute Plan to address problem: Form for covid 19 filled out (3) Insulin dependent diabetes mellitus Current Visit: Yes Status: Acute Plan to address problem: Continue insulin coverage and home insulin Check hemoglobin A1c (4) Hyperlipidemia Current Visit: Yes Status: Acute (5) HTN (hypertension) Current Visit: Yes Status: Chronic (6) CAD (coronary artery disease) Current Visit: No Status: Chronic (7) CHF (congestive heart failure) Current Visit: Yes Status: Chronic Qualifiers: Heart failure type: combined systolic and diastolic Heart failure chronicity: unspecified Qualified Code(s): I50.40 - Unspecified combined systolic (congestive) and diastolic (congestive) heart failure Plan to address problem: Continue Lasix Check echo (8) Vitamin D deficiency Current Visit: Yes Status: Chronic Plan to address problem: Continue vitamin D (9) DVT prophylaxis Current Visit: Yes Status: Acute Plan to address problem: Continue heparin and GI prophylaxis
[2019-12-02] MEDS ORDERED: oxyCODONE /ACETAMINOPHEN 5-325MG TAB PO PRN (23:13)
[2019-12-02] MEDS ORDERED: ACETAMINOPHEN 325 MG TAB PO PRN (23:13)
[2019-12-02] MEDS ORDERED: ONDANSETRON 4 MG/2 ML INJ IV PRN (23:13)
[2019-12-02] MEDS ORDERED: HYDROmorphone 1 MG/1 ML INJ IV PRN (23:13)
[2019-12-02] MEDS ORDERED: ALBUTEROL 2.5 MG/3 ML NEBU IH PRN (23:21)
[2019-12-03] MEDS ORDERED: POTASSIUM CHLORIDE ER 20 MEQ TAB PO ONE (00:18)
[2019-12-03 05:17] LABS: Hematocrit 35.1 % (30.3-42.9); Hemoglobin 11.4 gm/dl (10.1-14.3); Mean Corpuscular HGB Conc 33 % (30-34); Mean Corpuscular Volume 78 fl (79-97); Platelet Count 287 K/mm3 (140-440); Red Blood Count 4.48 M/mm3 (3.65-5.03); Red Cell Distribution Width 15.4 % (13.2-15.2)
[2019-12-03 06:08] LABS: Alanine Aminotransferase 17 units/L (7-56); Albumin 3.7 g/dL (3.9-5); BUN/Creatinine Ratio 13; Blood Urea Nitrogen 10 mg/dL (7-17); Hemolysis Index 2
[2019-12-03 06:50] LABS: Basophils % (Manual) 0 % (0.0-1.8); Eosinophils % (Manual) 0 % (0.0-4.3); Platelet Estimate Consistent w Auto; Total Cells Counted 100
[2019-12-03] MEDS: INSULIN GLARGINE 100 UNITS/ML SUB-Q SCH ×2 (09:24→17:26)
[2019-12-03] MEDS: AZITHROMYCIN 500 MG in SODIUM CHLORIDE 0.9% 250ML 250 ML IV SCH (09:24)
[2019-12-03] MEDS: INSULIN LISPRO 100 UNIT/ML SUB-Q SCH ×4 (09:25→22:46)
[2019-12-03] MEDS: amLODIPine 5 MG TAB PO SCH (09:25)
[2019-12-03] MEDS: CLOPIDOGREL 75 MG TAB PO SCH (09:26)
[2019-12-03] MEDS: FAMOTIDINE 20 MG TAB PO SCH ×2 (09:26→22:34)
[2019-12-03] MEDS: ASPIRIN 81 MG TAB CHEW PO SCH (09:26)
[2019-12-03] MEDS: LOSARTAN 50 MG TAB PO SCH (09:26)
[2019-12-03] MEDS ORDERED: INSULIN GLARGINE HUM REC ANLOG 30 UNIT SUB-Q SCH (10:00)
[2019-12-03] MEDS ORDERED: IRBESARTAN 300 MG PO SCH (10:00)
[2019-12-03] MEDS: cefTRIAXone/NS 2 GM/100 ML 2 GM/100 ML BAG IV SCH (10:58)
--- NOTE | 2019-12-03 15:54 | Progress Note ---
Assessment and Plan / Bilateral pneumonia Patient started on Rocephin and Zithromax Coronavirus forms sent out but test have not done yet Patient kept in isolation No ID consult requested at this time Will ask for ID consult if necessary / Suspected 2018 novel coronavirus infection Form for covid 19 filled out, test pending / Insulin dependent diabetes mellitus Continue insulin coverage and home insulin Check hemoglobin A1c 10.4 / Hyperlipidemia /HTN (hypertension) /CAD (coronary artery disease) -Continue aspirin and statin, home antihypertensive medications /CHF (congestive heart failure)/combined systolic and diastolic ) Continue Lasix Check echo / Vitamin D deficiency Continue vitamin D supplements / DVT prophylaxis Continue heparin and GI prophylaxis Disposition: Patient could be discharged tomorrow morning if clinically remains stable after Covid19 swab has been collected Brief history: 74-year-old female with history of CHF, insulin-dependent diabetes, hypertension, coronary artery disease and hyperlipidemia comes in for cough shortness of breath wheezing and for fever for 1 day. Physical exam: General appearance: Present: no acute distress, well-nourished - EENT Eyes: Present: PERRL ENT: hearing intact, clear oral mucosa - Neck Neck: Present: supple, normal ROM - Respiratory Respiratory effort: normal Respiratory: bilateral: CTA, rales (Scattered) - Cardiovascular Heart rate: 87 Rhythm: regular Heart Sounds: Present: S1 & S2. Absent: rub, click - Extremities Extremities: no ischemia, pulses intact, pulses symmetrical, No edema Peripheral Pulses: within normal limits - Abdominal General gastrointestinal: Present: soft, non-tender, non-distended, normal bowel sounds Female genitourinary: Present: normal - Integumentary Integumentary: Present: clear, warm, dry - Musculoskeletal Musculoskeletal: gait normal, strength equal bilaterally - Psychiatric Psychiatric: appropriate mood/affect, intact judgment & insight - Neurologic Neurologic: CNII-XII intact, moves all extremities Subjective Date of service: 12/03/19 Interval history: Patient seen and examined. Medical records and medication list reviewed. No acute event overnight noted by the RN. Patient denies any chest pain or difficulty breathing. Patient is tolerating diet. Patient remains afebrile Discussed plan of care at bedside with patient. Objective - Constitutional Vitals: Vital Signs - 12hr 12/03/19 12/03/19 12/03/19 06:46 09:25 09:26 Temperature 99.8 F H Pulse Rate 84 84 84 Respiratory 20 Rate Blood Pressure 145/56 145/86 145/56 O2 Sat by Pulse 93 Oximetry 12/03/19 12:35 Temperature 98.6 F Pulse Rate 76 Respiratory 18 Rate Blood Pressure 145/42 O2 Sat by Pulse 97 Oximetry - Labs CBC & Chem 7: 12/03/19 04:53 12/03/19 04:53 Labs: Abnormal lab results 12/03/19 12/03/19 12/03/19 Range/Units 00:03 04:53 04:53 WBC 3.9 L (4.5-11.0) K/mm3 MCV 78 L (79-97) fl MCH 25 L (28-32) pg RDW 15.4 H (13.2-15.2) % Lymphocytes % (Manual) 52.0 H (13.4-35.0) % Seg Neutrophils # Man 1.7 L (1.8-7.7) K/mm3 Glucose 216 H (65-100) mg/dL POC Glucose 215 H (70-105) Hemoglobin A1c (4-6) % Albumin 3.7 L (3.9-5) g/dL 12/03/19 12/03/19 12/03/19 Range/Units 04:53 08:21 11:46 WBC (4.5-11.0) K/mm3 MCV (79-97) fl MCH (28-32) pg RDW (13.2-15.2) % Lymphocytes % (Manual) (13.4-35.0) % Seg Neutrophils # Man (1.8-7.7) K/mm3 Glucose (65-100) mg/dL POC Glucose 190 H 190 H (70-105) Hemoglobin A1c 10.4 H (4-6) % Albumin (3.9-5) g/dL
[2019-12-03] MEDS ORDERED: ENOXAPARIN 40 MG/0.4 ML INJ SUB-Q SCH (22:00)
[2019-12-04] MEDS: INSULIN LISPRO 100 UNIT/ML SUB-Q SCH ×3 (10:27→17:56)
[2019-12-04] MEDS: AZITHROMYCIN 500 MG in SODIUM CHLORIDE 0.9% 250ML 250 ML IV SCH (10:28)
[2019-12-04] MEDS: cefTRIAXone/NS 2 GM/100 ML 2 GM/100 ML BAG IV SCH (10:28)
[2019-12-04] MEDS: amLODIPine 5 MG TAB PO SCH (10:29)
[2019-12-04] MEDS: FAMOTIDINE 20 MG TAB PO SCH (10:30)
[2019-12-04] MEDS: ASPIRIN 81 MG TAB CHEW PO SCH (10:30)
[2019-12-04] MEDS: CLOPIDOGREL 75 MG TAB PO SCH (10:30)
[2019-12-04] MEDS: LOSARTAN 50 MG TAB PO SCH (10:30)
[2019-12-04] MEDS: INSULIN GLARGINE 100 UNITS/ML SUB-Q SCH ×2 (10:30→17:56)
[2019-12-04 16:53] VITALS: BP 179/84
--- NOTE | 2019-12-04 19:16 | Discharge Summary ---
Providers - Providers Date of Admission: 12/02/19 15:26 Date of discharge: 12/04/19 Attending physician: YOUSUF ROQUE None Primary care physician: JUAN KEITA Hospitalization Condition: Stable Hospital course: Patient 73-year-old female with a history of congestive heart failure, diabetes, hypertension, coronary disease hyperlipidemia presented with fever shortness of breath. Found to have bilateral pneumonia. Patient started on Rocephin and azithromycin. Kovic 19 test was obtained. Patient remained hemodynamically stable throughout hospital stay. Patient was on oxygen at home. Will need to be discharged again on oxygen. Disposition: [id number] HOME UNDER HOME HLTH - Discharge Diagnoses (1) Bilateral pneumonia Status: Acute Comment: Patient alert oriented x3. No shortness of breath sats are fine. Treated with Rocephin and azithromycin. Unlikely pneumonia but will treat with him. Antibiotics Levaquin. (2) Hyperlipidemia Status: Acute Comment: Treated with statin. Continue home meds. (3) Insulin dependent diabetes mellitus Status: Acute Comment: Patient has poor control of diabetes. A1c 10.4. Will increase current insulin regime. (4) Suspected 2019 novel coronavirus infection Status: Acute Comment: Patient to self quarantine for a total of 14 more days. No new concerns at this time. Patient understands the meaning self quarantine. 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 (6) Diabetes Status: Chronic (7) HTN (hypertension) Status: Chronic (8) CAD (coronary artery disease) Status: Chronic Core Measure Documentation - Palliative Care Palliative Care/ Comfort Measures: Not Applicable - Core Measures Any of the following diagnoses?: none Exam - Constitutional Vitals: Temp Pulse Resp BP Pulse Ox 98.6 F 78 20 179/84 94 12/04/19 16:44 12/04/19 16:44 12/04/19 16:44 12/04/19 16:44 12/04/19 16:44 General appearance: Present: no acute distress, well-nourished - EENT Eyes: Present: PERRL ENT: hearing intact, clear oral mucosa - Neck Neck: Present: supple, normal ROM - Respiratory Respiratory effort: normal Respiratory: bilateral: CTA - Cardiovascular Heart Sounds: Present: S1 & S2. Absent: rub, click - Extremities Extremities: pulses symmetrical, No edema Peripheral Pulses: within normal limits - Abdominal General gastrointestinal: Present: soft, non-tender, non-distended, normal bowel sounds Female genitourinary: Present: normal - Integumentary Integumentary: Present: clear, warm, dry - Musculoskeletal Musculoskeletal: gait normal, strength equal bilaterally - Psychiatric Psychiatric: appropriate mood/affect, intact judgment & insight - Neurologic Neurologic: CNII-XII intact, moves all extremities Plan Activity: no restrictions, other (Self quarantine 14 days.) Diet: diabetic Follow up with: JUAN KEITA MD [Primary Care Provider] - 3-5 Days Prescriptions: amLODIPine 10 mg PO DAILY #30 Azithromycin [Zithromax TAB] 500 mg PO QDAY #7 tablet
[2019-12-05] MEDS ORDERED: AZITHROMYCIN 250 MG TAB PO SCH (10:00)
== END 2019-12-04 21:00 | disposition home or self-care (01) | DRG 194 ==
LOC: ED 12:42 → EEVIPCON 15:26 → 3A 15:26
PROVIDERS: ADMIT Internal Medicine; ATTEND Internal Medicine
DX: J18.9 Pneumonia, unspecified organism (principal); I50.42 Chronic combined systolic (congestive) and diastolic (congestive) heart failure; E11.9 Type 2 diabetes mellitus without complications; J45.909 Unspecified asthma, uncomplicated; I25.10 Atherosclerotic heart disease of native coronary artery without angina pectoris; E55.9 Vitamin D deficiency, unspecified; I11.0 Hypertensive heart disease with heart failure; Z20.828 Contact with and (suspected) exposure to other viral communicable diseases; K21.9 Gastro-esophageal reflux disease without esophagitis; Z96.653 Presence of artificial knee joint, bilateral; Z95.5 Presence of coronary angioplasty implant and graft; Z90.710 Acquired absence of both cervix and uterus; Z79.82 Long term (current) use of aspirin; Z79.899 Other long term (current) drug therapy; Z82.49 Family history of ischemic heart disease and other diseases of the circulatory system
CPT/HCPCS: 36415; 71046; 80053; 82962; 83036; 84484; 85007; 85025; 85610; 85730; 87040; 87116; 87400; 93005; 93010; 94640; G0378; A9270-GY; J0456; J0696; J1650; J1815; J7050

== ENCOUNTER 2020-01-12 11:57 | Outpatient (CLI) | payer BC, MEDICARE ==
--- NOTE | 2020-01-12 13:03 | XRay Report ---
CHEST 2 VIEWS INDICATION / CLINICAL INFORMATION: ASTHMA. COMPARISON: 12/02/2019. FINDINGS: SUPPORT DEVICES: None. HEART / MEDIASTINUM: No significant abnormality. LUNGS / PLEURA: Interval resolution of bilateral pulmonary opacities. No pneumothorax. ADDITIONAL FINDINGS: No significant additional findings. IMPRESSION: 1. Resolved bilateral pulmonary opacities compared with 12/02/2019. No new acute findings. Signer Name: Chance Thakur MD Signed: 01/12/2020 12:58 PM Workstation Name: [email or web address]
== END 2020-01-12 11:58 | disposition home or self-care (01) ==
LOC: XRAY 11:57
PROVIDERS: ATTEND Internal Medicine
DX: J45.909 Unspecified asthma, uncomplicated (principal)
CPT/HCPCS: 71046

== ENCOUNTER 2020-06-09 16:01 | Outpatient (CLI) | payer BC, MEDICARE ==
[2020-06-15 08:22] LABS: Chol/HDL Ratio 3.5 %
== END 2020-06-09 16:02 | disposition home or self-care (01) ==
LOC: LAB 16:01
PROVIDERS: ATTEND Internal Medicine
DX: E11.65 Type 2 diabetes mellitus with hyperglycemia (principal); E78.5 Hyperlipidemia, unspecified
CPT/HCPCS: 36415; 80061; 83036

== ENCOUNTER 2020-09-07 13:21 | Outpatient (CLI) | payer BC, MEDICARE ==
--- NOTE | 2020-09-07 16:10 | Mammography Report ---
DIGITAL SCREENING MAMMOGRAM WITH CAD, 09/07/2020 CLINICAL INFORMATION / INDICATION: Routine screening mammography. SCREENING HX OF BREAST CAN TECHNIQUE: Digital bilateral 2D mammography was obtained in the craniocaudal and mediolateral obliqu e projections. This examination was interpreted with the benefit of Computer-Aided Detection analysis . COMPARISON: 07/21/2018 FINDINGS: Breast Density: There are scattered areas of fibroglandular density. No dominant mass, suspicious calcifications, or architectural distortion in the left breast. There is a new small 5 mm nodular density in the right breast at 3:00 containing calcifications.. Spot magnif ication views will be necessary for further evaluation. Postlumpectomy and radiation changes again noted in the left breast, upper outer quadrant. Focal fat necrosis is noted at lumpectomy site. IMPRESSION: New small nodule containing calcifications in the right breast at 3:00. Recommend spot ma gnification views. Ultrasound may be required as well. Follow up recommendation: Magnification views with possible ultrasound, right breast BI-RADS Category 0: Incomplete. Needs additional imaging evaluation and/or prior mammograms for jose burgos. A "normal" or negative report should not discourage follow up or biopsy of a clinically significant f inding. A written summary of these findings will be mailed to the patient. The patient will be entered into a mammography reporting system which will generate a reminder letter for the patient's next appointmen t at the appropriate interval. The [employer] recommends yearly mammograms starting at age 40 and continuing as l angelita as a woman is in good health. Breast MRI is recommended for women with an approximate 20-25% or greater lifetime risk of breast cancer, including women with a strong family history of breast or ova jose cancer or who have been treated for Hodgkin's disease. Signer Name: Kady Jorge MD Signed: 09/07/2020 4:06 PM Workstation Name: [id number]
== END 2020-09-07 13:22 | disposition home or self-care (01) ==
LOC: MAMMO 13:21
PROVIDERS: ATTEND Internal Medicine
DX: Z12.31 Encounter for screening mammogram for malignant neoplasm of breast (principal); R92.1 Mammographic calcification found on diagnostic imaging of breast; N63.12 Unspecified lump in the right breast, upper inner quadrant
CPT/HCPCS: 77067

== ENCOUNTER 2020-09-14 11:55 | Outpatient (CLI) | payer BC, MEDICARE ==
--- NOTE | 2020-09-14 13:26 | Mammography Report ---
DIGITAL DIAGNOSTIC MAMMOGRAM WITH CAD WITH TOMOSYNTHESIS, 09/14/2020 CLINICAL INFORMATION / INDICATION: Follow-up of indeterminate right breast nodule. TECHNIQUE: Digital right mammographic imaging was performed. Magnification views were obtained. This examination was interpreted with the benefit of Computer-aided Detection analysis. COMPARISON: 09/07/2020, 08/18/2019, 07/21/2018, 08/29/2016 FINDINGS: Breast Density: There are scattered areas of fibroglandular density. The previously described 3:00 small nodule containing calcifications can be seen on mammograms dating back to 2015. During that time, the nodule has not significantly changed in size. Calcifications wit hin this nodule have progressively increased over time with slight increase in number compared to the 2019 mammogram. No other significant abnormality is identified. IMPRESSION: Right breast nodule as above containing calcifications. Suspicion for malignancy is low, but given the slight increase in number of calcifications within the nodule, stereotactic biopsy is r ecommended for further evaluation. Follow up recommendation: Biopsy BI-RADS Category 4: Suspicious for Malignancy. A "normal" or negative report should not discourage follow up or biopsy of a clinically significant f inding. A written summary of these findings will be mailed to the patient. The patient will be entered into a mammography reporting system which will generate a reminder letter for the patient's next appointmen t at the appropriate interval. According to the [employer], yearly mammograms are recommended starting at age 40 and continuing as long as a woman is in good health. Breast MRI is recommended for women with an jena roximately 20-25% or greater lifetime risk of breast cancer, including women with a strong family his tory of breast or ovarian cancer and women who have been treated for Hodgkin's disease. Signer Name: Jordy Sehr MD Signed: 09/14/2020 1:22 PM Workstation Name: [id number]
--- NOTE | 2020-09-14 13:34 | Mammography Report ---
DEXA BONE DENSITY SCAN INDICATION / CLINICAL INFORMATION: OSTEOPOROSIS. 74 years Female COMPARISON: None available. LUMBAR SPINE (L1-L4): - Bone mineral density (BMD) = 1.196 g/cm2. - T-score = 1.4 - Z-score = 3.0 Change (%) since most recent prior (if available): None available. FEMORAL NECKS: - Left femoral neck Bone mineral density (BMD) = 0.873 g/cm2. - T-score = 0.2 - Z-score = 1.0 Change (%) since most recent prior (if available): None available. IMPRESSION: 1. WHO Classification: Normal bone density. Fracture Risk: Not Increased. BMD Reporting Guidelines (ISCD, 2015) BMD Reporting in Postmenopausal Women and in Men Age 50 and Older * T-scores are preferred. * The WHO densitometric classification is applicable. BMD Reporting in Females Prior to Menopause and in Males Younger Than Age 50 * Z-scores, not T-scores, are preferred. This is particularly important in children. * A Z-score of -2.0 or lower is defined as below the expected range for age, and a Z-score above -2. 0 is within the expected range for age. * Osteoporosis cannot be diagnosed in men under age 50 on the basis of BMD alone. * The WHO diagnostic criteria may be applied to women in the menopausal transition. http://www.iscd.org/official-positions/9215-eldv-rvhcbhqv-positions-adult/ Signer Name: Michael Castro MD Signed: 09/14/2020 1:30 PM Workstation Name: [id number]
== END 2020-09-14 11:56 | disposition home or self-care (01) ==
LOC: MAMMO 11:55
PROVIDERS: ATTEND Obstetrics & Gynecology
DX: R92.1 Mammographic calcification found on diagnostic imaging of breast (principal); N95.1 Menopausal and female climacteric states
CPT/HCPCS: 77080

== ENCOUNTER 2020-10-05 10:05 | Outpatient (CLI) | payer BC, MEDICARE ==
--- NOTE | 2020-10-05 14:16 | Mammography Report ---
DIGITAL DIAGNOSTIC MAMMOGRAM WITH CAD CONVENTIONAL, 10/05/2020 CLINICAL INFORMATION / INDICATION: Post stereotactic biopsy TECHNIQUE: Digital right mammographic imaging was performed. This examination was interpreted with the benefit of Computer-aided Detection analysis. COMPARISON: Right mammogram 09/14/2019 FINDINGS: Breast Density: The breasts are heterogeneously dense, which may obscure small masses. Targeted microcalcifications are no longer present and are seen in the specimen set. Clip is approxim ately 1 cm inferior to the site. IMPRESSION: Satisfactory sampling and acceptable clip placement Follow up recommendation: Per biopsy results Post biopsy imaging. A "normal" or negative report should not discourage follow up or biopsy of a clinically significant f inding. A written summary of these findings will be mailed to the patient. The patient will be entered into a mammography reporting system which will generate a reminder letter for the patient's next appointmen t at the appropriate interval. According to the [employer], yearly mammograms are recommended starting at age 40 and continuing as long as a woman is in good health. Breast MRI is recommended for women with an jena roximately 20-25% or greater lifetime risk of breast cancer, including women with a strong family his tory of breast or ovarian cancer and women who have been treated for Hodgkin's disease. Signer Name: Grupo Cummings MD Signed: 10/05/2020 2:11 PM Workstation Name: [id number]
--- NOTE | 2020-10-05 14:19 | Mammography Report ---
STEREOTACTIC GUIDED VACUUM ASSISTED MAMMOTOME BIOPSY OF THE RIGHT BREAST INDICATION: Small nodule with increasing indeterminate microcalcifications COMPARISON: Mammography 09/07/2020, 09/14/2020 ANESTHESIA: Local DEVICE: Vacuum-assisted mammotome biopsy device, 8 gauge APPROACH: Medial CONSENT: Procedure was discussed in advance at length with the patient including possible risks and b enefits. The possibility of bleeding was discussed. Opportunity for questions was given. Patient is n ot on anticoagulant therapy and does not report pertinent allergies. Post procedural care was discuss ed. PROCEDURE: Timeout was performed. The grouped microcalcifications in the small nodule were targeted s tereotactically. Initial targeting from a superior approach was abandoned due to close proximity of v ascularity. A medial approach was then used with less vascular interference. Using aseptic technique, needle was advanced to the appropriate depth and multiple [id number] biopsies were performed. Specimens were then radiographed revealing the nodule with calcifications was entirely included in a specimen. A metallic clip was then left in place and an image was obtained for confirmation. The rose ce was removed and pressure was held at the puncture site. Site was secured. Specimens were sent to p [facility]ology for analysis. Patient was then sent for post biopsy mammogram which showed removal of the ca lcifications in acceptable clip placement. Patient tolerated the procedure well and left the [facility] good condition. IMMEDIATE COMPLICATIONS: None IMPRESSION: Successful stereotactic guided vacuum assisted mammotome biopsy of the right breast Signer Name: Grupo Cummings MD Signed: 10/05/2020 2:14 PM Workstation Name: [id number]
== END 2020-10-05 10:06 | disposition home or self-care (01) ==
LOC: SPVWC 10:05
PROVIDERS: ATTEND Surgery
DX: R92.1 Mammographic calcification found on diagnostic imaging of breast (principal); R92.8 Other abnormal and inconclusive findings on diagnostic imaging of breast; D24.2 Benign neoplasm of left breast; I25.10 Atherosclerotic heart disease of native coronary artery without angina pectoris; I10 Essential (primary) hypertension; E11.9 Type 2 diabetes mellitus without complications; J45.909 Unspecified asthma, uncomplicated; I11.0 Hypertensive heart disease with heart failure; I50.9 Heart failure, unspecified; E78.5 Hyperlipidemia, unspecified; K21.9 Gastro-esophageal reflux disease without esophagitis; Z90.710 Acquired absence of both cervix and uterus; Z79.4 Long term (current) use of insulin; Z95.5 Presence of coronary angioplasty implant and graft; Z87.01 Personal history of pneumonia (recurrent); Z79.899 Other long term (current) drug therapy; Z79.82 Long term (current) use of aspirin; Z98.42 Cataract extraction status, left eye; Z98.890 Other specified postprocedural states; Z96.652 Presence of left artificial knee joint
CPT/HCPCS: 19081; 77065; 88305; A4648

== ENCOUNTER 2021-01-26 10:04 | Outpatient (CLI) | payer BC, MEDICARE ==
[2021-01-26 11:03] LABS: Chol/HDL Ratio 3.28 %
== END 2021-01-26 10:05 | disposition home or self-care (01) ==
LOC: LAB 10:04
PROVIDERS: ATTEND Internal Medicine
DX: E11.65 Type 2 diabetes mellitus with hyperglycemia (principal); E78.5 Hyperlipidemia, unspecified
CPT/HCPCS: 36415; 80061

== ENCOUNTER 2021-05-31 06:49 | Outpatient (CLI) | payer BC, MEDICARE ==
[2021-05-31 07:51] LABS: Basophils # (Auto) 0.1 K/mm3 (0.0-0.1); Basophils % (Auto) 1.3 % (0.0-1.8); Eosinophils # (Auto) 0.1 K/mm3 (0.0-0.4); Eosinophils % (Auto) 1.5 % (0.0-4.3); Hematocrit 34.6 % (30.3-42.9); Hemoglobin 11.4 gm/dl (10.1-14.3); Lymphocytes # (Auto) 1.7 K/mm3 (1.2-5.4); Lymphocytes % (Auto) 22.4 % (13.4-35.0); Mean Corpuscular HGB Conc 33 % (30-34); Mean Corpuscular Volume 83 fl (79-97); Monocytes # (Auto) 0.6 K/mm3 (0.0-0.8); Monocytes % (Auto) 7.9 % (0.0-7.3); Platelet Count 323 K/mm3 (140-440); Red Blood Count 4.19 M/mm3 (3.65-5.03); Red Cell Distribution Width 16.2 % (13.2-15.2)
[2021-05-31 08:37] LABS: Alanine Aminotransferase 23 units/L (7-56); Albumin 3.6 g/dL (3.9-5); BUN/Creatinine Ratio 18; Blood Urea Nitrogen 16 mg/dL (7-17); Calcium 9.8 mg/dL (8.4-10.2); Chol/HDL Ratio 3.31 %; HDL Cholesterol 45 mg/dL (40-59); Hemolysis Index 2; LDL Cholesterol,Direct 97 mg/dL (50-130)
[2021-06-03 12:35] LABS: Vitamin D, 25-OH, D2 <4 ng/mL
== END 2021-05-31 06:50 | disposition home or self-care (01) ==
LOC: LAB 06:49
PROVIDERS: ATTEND Internal Medicine
DX: Z00.00 Encounter for general adult medical examination without abnormal findings (principal); Z13.29 Encounter for screening for other suspected endocrine disorder; E11.65 Type 2 diabetes mellitus with hyperglycemia; E78.5 Hyperlipidemia, unspecified; E55.9 Vitamin D deficiency, unspecified
CPT/HCPCS: 36415; 80053; 80061; 82306; 83036; 84443; 85025

== ENCOUNTER 2021-07-26 11:07 | Outpatient (CLI) | payer BC, MEDICARE ==
[2021-07-26 14:08] LABS: Alanine Aminotransferase 21 units/L (7-56); Albumin 3.8 g/dL (3.9-5)
[2021-07-26 14:09] LABS: Bilirubin,Direct < 0.2 mg/dL (0-0.2)
== END 2021-07-26 11:08 | disposition home or self-care (01) ==
LOC: LAB 11:07
PROVIDERS: ATTEND Internal Medicine
DX: R94.5 Abnormal results of liver function studies (principal)
CPT/HCPCS: 36415; 80076

== ENCOUNTER 2021-10-02 09:50 | Outpatient (CLI) | payer BC, MEDICARE ==
--- NOTE | 2021-10-02 17:48 | Mammography Report ---
DIGITAL SCREENING MAMMOGRAM WITH CAD, 10/02/2021 CLINICAL INFORMATION / INDICATION: Routine screening TECHNIQUE: Digital bilateral 2D mammography was obtained in the craniocaudal and mediolateral obliqu e projections. This examination was interpreted with the benefit of Computer-Aided Detection analysis . COMPARISON: 09/07/2020 and prior FINDINGS: Breast Density: There are scattered areas of fibroglandular density. No dominant mass, suspicious calcifications, or architectural distortion in either breast. Bilateral surgical changes are again seen with left benign-appearing calcifications. Interval right b iopsy changes are noted with removal of targeted calcifications. Mildly prominent right axillary node s are not significantly changed from 2019. IMPRESSION: No mammographic evidence of malignancy. Follow up recommendation: Routine yearly BI-RADS Category 2: BENIGN. A "normal" or negative report should not discourage follow up or biopsy of a clinically significant f inding. A written summary of these findings will be mailed to the patient. The patient will be entered into a mammography reporting system which will generate a reminder letter for the patient's next appointmen t at the appropriate interval. The [employer] recommends yearly mammograms starting at age 40 and continuing as l angelita as a woman is in good health. Breast MRI is recommended for women with an approximate 20-25% or greater lifetime risk of breast cancer, including women with a strong family history of breast or ova jose cancer or who have been treated for Hodgkin's disease. Signer Name: Grupo Cummings MD Signed: 10/02/2021 5:44 PM Workstation Name: [id number]
== END 2021-10-02 09:51 | disposition home or self-care (01) ==
LOC: MAMMO 09:50
PROVIDERS: ATTEND Obstetrics & Gynecology
DX: Z12.31 Encounter for screening mammogram for malignant neoplasm of breast (principal); N64.89 Other specified disorders of breast
CPT/HCPCS: 77067